=== PATIENT | female | born 1940 | race Caucasian/White ===

== ENCOUNTER 2018-01-19 08:42 | Inpatient (IN) | payer MEDICARE, OTHER, SELFPAY ==
[2018-01-01 10:01] VITALS: BP 146/75; PULSE 85; RESP 16; TEMP 36.1; O2SAT 94; BMI 44.6
--- NOTE | 2018-01-01 10:57 | HP.PCM_ITS ---
History and Physical DATE OF SERVICE: 01/19/2018 SCHEDULED PROCEDURE: Right total knee arthroplasty HISTORY OF PRESENT ILLNESS: This is a 77-year-old female who is been having ongoing pain in bilateral knees for several years. Pain can reach as high as a 7-8 out of 10. She has increased pain going up and down stairs, walking any amount of distance. Patient states her pain is intermittent, dull, aching, and sharp. Patient does complain of start up pain. Patient's knee pain is primarily over the medial joint line on the left and right knee. Patient states difficult time accomplishing activities of daily living including housework and shopping. Patient has tried ice heat elevation with minimal to no relief. Patient did undergo previous corticosteroid injections in the bilateral knees with only temporary relief. Patient did recently have her knees give out after pool therapy she complains of difficult time now with going up and down stairs and feeling weaker. Patient has been ambulating with a cane and walker. Patient states the right knee hurts worse than the left knee. Patient feels her overall function is decreasing due to the knee pain. She denies previous surgery on bilateral knees. After failing conservative measures and discussing all treatment options with Dr. Deleon, the patient would like to proceed with a right total knee arthroplasty. Patient has obtained surgical clearance from his primary care physician Dr. Morgan. Patient currently denies any chest pain , shortness of breath, fevers chills, or recent infections. REVIEW OF SYSTEMS: ROS: Const: Denies anorexia, change in appetite, fever, hard of hearing, vision problems and weight change. CV: Denies chest pain, heart murmur, irregular heartbeat and peripheral vascular disease. Resp: Denies asthma, cough, pneumonia, sleep apnea, SOB, tuberculosis and wheezing. GI: Denies constipation, diarrhea, difficulty swallowing, heartburn, nausea, bloody stools and vomiting. : Genital:. (F Genital Sx) Urinary: denies incontinence. Musculo: Reports leg swelling and limp, but denies trouble walking and weakness. Skin: Reports history of shingles, but denies Raynaud's and tattoo. Neuro: Denies ambulatory dysfunction, dizziness, numbness/tingling and tremor. Psych: Denies anxiety, depression, insomnia, mental illness and stress. Devin/Lymph: Denies anemia, bleeding/bruising tendency and past transfusion. Reviewed, no changes. PAST MEDICAL HISTORY: Advance Care Plan: Other Directive, LIVING WILL Effective Date: 02/10/2017 PMH: Medical Problems: Arthritis, High Blood Pressure Accidents: None Surgical Hx: Tonsillectomy - (1950) [facility] Hip Replacement RT - (1992) [facility] LT THR - (07/29/2010) [email or web address] RT THR Revision - (03/03/2017) [email or web address] Anesthesia Complications: Nausea, Vomiting Assistive Devices: Glasses Reviewed, no changes. SOCIAL HISTORY: SH: Marital: .Occupation: Retired.Work Status: Retired.Hand Dominance: Right- handed, Ambidextrous. Personal Habits: Smoking: Patient has never smoked.Cigarette Use: Never.Alcohol : Occasionally.Drug Use: Denies Use.Enjoy Exercising: Exercises 1-3 X/Week. Reviewed, no changes. VITALS: Ht: 62 Wt: 243lb Wt k.225 BMI: 44.4 BP: 130/78 Pulse: 80 Resp: 16 T: 97.4 T: 36.3C ALLERGIES: Penicillin - Rash And Swelling Eggs - Hives Sick Strawberries - Hives Sulfa - Swollen Face And Tongue Bandaids - Rash Vicodin Darvocet - Itching Aspercreme MEDICATIONS: Acetaminophen Extra Strength 500 mg 2 tablets by mouth every 8 hours, Atorvastatin Calcium 20 mg 1 po qd, Vitamin D3 1000 Unit 1x daily, Tramadol HCL 50 mg 1-2 by mouth every 6 hours as needed pain, Amlodipine Besylate 5 mg 1 by mouth every day, Metoprolol Succinate ER 25 mg 1 by mouth every day, Valsartan 12.5 mg 1po qday PRE-OP EXAM: General appearance:NORMAL Other: Eyes: Conjunctivae and lids: NORMAL Pupils: ERR Ears, Nose, Mouth, and Throat: NORMAL Other: Inspection of lips, teeth and gums: NORMAL Other: Neck: Examination of neck: no masses noted. Respiratory: Assessment of respiratory effort: NORMAL Other: Ausculation of lungs: clear to ausculation no wheeses, ronchi or rales. Cardiovascular: Ausculation of heart: regular rate and rhythem, positive systolic mummur, no gallops or rubs. Exam of carotid arteries: NORMAL Other: Gastrointestinal: Exam of abdomen: soft, nontender, nondistended bowel sounds present. Lymphatic: Palpation of nodes in neck: NORMAL Other: Palpation of nodes in Axillae: NORMAL Other: Neurological: see below Psychiatric: Orientation to time, place and person: NORMAL Other: Mood and affect: NORMAL Other: PHYSICAL EXAMINATION: Patient walks with an antalgic gait. Patient has tenderness to palpation over the right knee medial lateral joint line. Right knee is cool to touch without erythema. Patient does have varus alignment bilaterally. It is partially correctable on the right non-correctable on the left. Range of motion on the right is +3? to 115? flexion. Left knee +3? of extension to 110? of flexion. Sensations intact light touch. IMAGING STUDIES: 1. X-rays were obtained at [facility] on January 01, 2018 of bilateral knees including weightbearing AP/tunnel, bilateral sunrise and bilateral lateral view reveals bilateral severe osteoarthritis with severe joint space narrowing, subchondral sclerosis, osteophyte formation, and varus deformity on the left. There is valgus deformity on the right. No findings for fracture. IMPRESSION: 1. Severe right knee osteoarthritis with valgus deformity 2. Severe left knee osteoarthritis with varus deformity 3. Hypertension PLAN: Dr. Deleon did discuss and review with the patient all treatment options including surgical versus nonsurgical. Patient wishes to proceed with above- stated procedure. Potential risks, benefits, and complications of this procedure were discussed in detail including but not limited to , infection , nerve and blood vessel damage, persistent pain, numbness, tingling, paresthesias, blood clot, pulmonary embolism, and requirement for further surgery. The patient expressed full understanding has no further questions for the doctor. Patient does agree to proceed with the above-stated procedure and has signed the surgery consent form. Patient has obtained surgical clearance from primary care physician. ___ I have re-examined the patient. There are no clinical changes since date of exam. ___ See progress notes for changes. ___ Dictated on admission Date: Time: Signature:
[2018-01-01 11:59] LABS: Anion Gap 9 (5-15); BUN 34 mg/dL (7-18); BUN/Creat Ratio 29.8 RATIO (10-20); Calcium,Total 9.3 mg/dL (8.5-10.1); Chloride 101 mmol/L (98-107); Creatinine, Serum 1.14 mg/dL (0.55-1.02); EST Glomerular Filtration Rate 49 mL/min (>60); Est Glom Filt Rate - Afr Amer 59 mL/min (>60); Estimated Creatinine Clearance 30.69 ml/min; Glucose 106 mg/dL (74-106); Potassium 3.9 mmol/L (3.5-5.1); Sodium Level 137 mmol/L (136-145)
[2018-01-01 14:52] LABS: Absolute Lymphocyte Count 1.47 X10^3/ul (0.83-4.51); Absolute Neutrophil Count 5.6 X10^3/uL (2.0-7.7); Basophil# 0.06 X10^3/uL; Basophil% 0.8 % (0-1); Eosinophil# 0.12 X10^3/uL; Eosinophils% 1.6 % (0-5); Hematocrit 40.2 % (37-47); Hemoglobin 13.7 g/dl (12.0-15.0); Lymphocyte # 1.47 X10^3/ul (4.0); Mean Corp Hgb Conc 34.1 g/gl (32-36); Mean Corpuscular Hgb 32.2 pg (27.0-32.0); Mean Corpuscular Volume 94.6 fL (81-99); Mean Platelet Vol. 9.8 fl (6.2-12.0); Monocyte# 0.47 X10^3/uL; Monocyte% 6.1 % (0-10); Neutrophil # 5.61 X10^3/uL (2.7-7.7); Neutrophil % 72.4 % (47-70); POSITIVE COUNT NO; POSITIVE DIFFERENTIAL NO; POSITIVE MORPHOLOGY NO; Platelet Count 288 K/mm3 (150-450); RBC Distribution Width CV 12.7 % (11.6-14.6); Red Blood Count 4.25 M/mm3 (4.2-5.4); White Blood Count 7.7 K/mm3 (4.4-11.0)
--- NOTE | 2018-01-14 15:30 | CASEMGMT ---
SISI EVANS called and spoke with patient regarding discharge needs after upcoming surgery. Patient states that she has a walker, cane, shower chair, and toilet riser and denies need for further DME. Patient states that she lives in a house and bed and bath are on the first floor. Patient states she has some stairs to enter home and has railing x2. Patient states that she is setup with [facility] for outpatient therapy and that her will be providing transportation. SISI EVANS will follow up with patient after surgery and will assist with discharge needs.
[2018-01-19] VITALS (18 sets, daily range): BP systolic 75–139; BP diastolic 31–82; PULSE 58–92; RESP 16–64; TEMP 36.1–36.9; O2SAT 92–99; BMI 44.4
[2018-01-19] MEDS: oxyCODONE HCl Cr 10 MG Tablet PO (09:19)
[2018-01-19] MEDS: Acetaminophen 500 MG Tablet 1000 MG PO ×2 (09:19→20:53)
[2018-01-19] MEDS: Clindamycin 600 MG/50 ML BAG 100 MG IV ×2 (11:37→17:47)
[2018-01-19] MEDS: Lactated Ringers 1,000 ML 999 ML IV (13:00)
--- NOTE | 2018-01-19 13:00 | PCM.OPRPT ---
Report of Operation Date of Procedure: 01/19/18 Pre-Operative Diagnosis: Primary right knee osteoarthritis Post-Operative Diagnosis: Primary right knee osteoarthritis Surgery/Procedure Performed:: Right total knee replacement, posterior stabilized Description of Surgical Findings:: Stable knee with good patella tracking clinical specialist medical device: Jerry Mcintyre Type of Anesthesia:: Spinal Anesthesiologist: Bong Krause Special Medications: 600 mg clindamycin, 1 g TXA at incision, 1 g TXA closure, 10 mg Decadron, joint cocktail (5 mg Duramorph, 30 mL of 0.5% Ropivicaine, 1000 units of epinephrine, 30 mg of Toradol) Specimen's removed: Bony cuts Estimated Blood Loss (mL): 50 Fluids Replaced: 1800 mL crystalloid Description of Procedure: Implants used: 1. Rachel size 4 triathlon posterior stabilized distal femoral component 2. Rachel size 4 universal tibial baseplate 3. Rachel X3 13 mm TS polyethylene 4. [place] X3 32 mm asymmetric patella Brief history operative indications: 77-year-old f with history of right knee osteoarthritis with radiographic findings with loss of joint space, osteophyte formation and subchondral sclerosis. Failed conservative measures as mentioned in the H&P. Discussion of total knee arthroplasty as well as risk and benefits were discussed the patient including but not limited to blood loss, DVTs, PEs, neurovascular damage, general risk of anesthesia including loss of life, and stiffness or instability were discussed with patient. Patient demonstrated understanding and was able to sign informed consent. Procedure: On the date of procedure patient's right lower extremity was marked in the preoperative area. The patient was then taken back to the operating room where the patient was placed on the table in the supine position. All bony prominences were identified a well-padded. Anesthesia assumed control of the C-spine and airway and remained controlled throughout the remainder of the procedure. A tourniquet was placed on the right upper thigh and the leg was prepped in a sterile fashion. The surgeon then scrubbed at this time. Upon reentering the room the right lower extremity was draped in a standard orthopedic fashion. A timeout was then called and everyone agreed upon the side, the site, the procedure to be performed, patient's identity and antibiotics given. Esmarch bandage was used to exsanguinate the extremity and the tourniquet was placed up to 250 mmHg with the knee in flexion. A midline skin incision was made and sharp dissection was taken down through skin subcutaneous tissue and fat. The standard medial parapatellar incision was made and the patella was subluxed laterally. The standard deep MCL release was done and the fat pad was resected. Next our attention was directed to the femur. Navigation pins were placed, navigation was registered. The distal femoral cutting block was pinned into place and 10 mm of distal femur resection was completed. The distal femoral cut was verified with navigation. The knee was then placed in deep flexion in the standard [employer] sizing guide was used to place the femoral component in 3? external rotation based on the posterior condyles. A size 4 4-in-1 cutting block was selected and pinned into place. The anterior cut was then made and checked for notching. The subsequent anterior chamfer cuts, posterior condylar cuts and posterior chamfer cuts were made while ensuring the MCL and LCL were protected. Our attention was then turned to the tibia where the navigation pins were placed, navigation was registered. [employer] tibial cutting guide was used to make the appropriate tibial cut 90 degrees from the mechanical axis. Navigation was then used to verify the cut. A size 4 tibial base plate was selected. the knee was flexed to 90 degrees and the soft tissues and posterior osteophytes were removed from the joint. 40 cc of the periarticular injection was injected into the posterior medial corner of the joint. Knee was flexed up and the notch cut was made using the [employer] notch cutting guide did The appropriate trials were then placed on the femur and tibia. A trial polyethylene was trialed to ensure proper balancing and stability of the knee. Patella tracking, was then verified and corrected appropriately as needed. The appropriate tibial internal rotation was then marked with a bovie. Our attention was then directed to the patella. The patella was everted and a flat resection was made. The lug holes were drilled and the patella trial was placed. Patellar tracking was checked and deemed appropriate. Once we were happy lug holes were drilled for the femur and trial components were removed. the tibia was subluxed and pinned into place and the keel was punched and the canal was reamed. Final components were verified and opened, and cement was mixed in a vacuum. [place] Simplex cement was used. The wound was copiously irrigated with normal saline. When the cement was ready the components were cemented into place starting with the tibia, femur and finally the patella. The trial poly component was placed and the knee was placed in full extension. All excess cement was removed in the process. Once the cement had cured the tracking, alignment and balance were verified and a size 13 mm polyethylene component was placed. Once the final components were placed the wound was copiously irrigated with normal saline solution and the periarticular injection was given. The wound was closed in a layer caraballo fashion using #1 vicryl interrupted sutures for the arthrotomy, 2-0 interrupted Vicryl suture for the subcuticular layer and gaudencio for final skin closure. A sterile compressive dressing was then placed. The patient was then awakened from anesthesia, transferred to the [place] and transferred to the PACU for recovery. Post op plan DVT ppx: ASA 325mg, thigh high compression stockings Follow up: in office in 2 weeks for wound check PT: to start POD #0 at hospital, outpatient PT should be arranged. My physician operator/assistant foreman was a vital part of this case. He was important in appropriate retraction during the case, and protection of soft tissues during bony cuts. His intimate knowledge of the case and my steps aided in safe and expedient completion of the procedure as well as appropriate position of the leg during the case. He was also vital in assisting with closure under my direct supervision. Grafts/Implants Used: Tracker triathlon posterior stabilized total knee - Complications None - Admit VTE Documentation VTE Present on Admission: No VTE Mechan Device Prophylaxis: SCD's, Thigh High DEDE Hose VTE Pharm Prophylaxis ordered?: Yes
--- NOTE | 2018-01-19 13:04 | OP.PCM_ITS ---
Report of Operation Date of Procedure: 01/19/18 Pre-Operative Diagnosis: Primary right knee osteoarthritis Post-Operative Diagnosis: Primary right knee osteoarthritis Surgery/Procedure Performed:: Right total knee replacement, posterior stabilized Description of Surgical Findings:: Stable knee with good patella tracking cemetery vault installer: Jerry Mcintyre Type of Anesthesia:: Spinal Anesthesiologist: Bong Krause Special Medications: 600 mg clindamycin, 1 g TXA at incision, 1 g TXA closure, 10 mg Decadron, joint cocktail (5 mg Duramorph, 30 mL of 0.5% Ropivicaine, 1000 units of epinephrine, 30 mg of Toradol) Specimen's removed: Bony cuts Estimated Blood Loss (mL): 50 Fluids Replaced: 1800 mL crystalloid Description of Procedure: Implants used: 1. Rachel size 4 triathlon posterior stabilized distal femoral component 2. Rachel size 4 universal tibial baseplate 3. Rachel X3 13 mm TS polyethylene 4. [place] X3 32 mm asymmetric patella Brief history operative indications: 77-year-old f with history of right knee osteoarthritis with radiographic findings with loss of joint space, osteophyte formation and subchondral sclerosis. Failed conservative measures as mentioned in the H&P. Discussion of total knee arthroplasty as well as risk and benefits were discussed the patient including but not limited to blood loss, DVTs, PEs, neurovascular damage , general risk of anesthesia including loss of life, and stiffness or instability were discussed with patient. Patient demonstrated understanding and was able to sign informed consent. Procedure: On the date of procedure patient's right lower extremity was marked in the preoperative area. The patient was then taken back to the operating room where the patient was placed on the table in the supine position. All bony prominences were identified a well-padded. Anesthesia assumed control of the C- spine and airway and remained controlled throughout the remainder of the procedure. A tourniquet was placed on the right upper thigh and the leg was prepped in a sterile fashion. The surgeon then scrubbed at this time. Upon reentering the room the right lower extremity was draped in a standard orthopedic fashion. A timeout was then called and everyone agreed upon the side , the site, the procedure to be performed, patient's identity and antibiotics given. Esmarch bandage was used to exsanguinate the extremity and the tourniquet was placed up to 250 mmHg with the knee in flexion. A midline skin incision was made and sharp dissection was taken down through skin subcutaneous tissue and fat. The standard medial parapatellar incision was made and the patella was subluxed laterally. The standard deep MCL release was done and the fat pad was resected. Next our attention was directed to the femur. Navigation pins were placed, navigation was registered. The distal femoral cutting block was pinned into place and 10 mm of distal femur resection was completed. The distal femoral cut was verified with navigation. The knee was then placed in deep flexion in the standard [employer] sizing guide was used to place the femoral component in 3? external rotation based on the posterior condyles. A size 4 4-in-1 cutting block was selected and pinned into place. The anterior cut was then made and checked for notching. The subsequent anterior chamfer cuts, posterior condylar cuts and posterior chamfer cuts were made while ensuring the MCL and LCL were protected. Our attention was then turned to the tibia where the navigation pins were placed , navigation was registered. [employer] tibial cutting guide was used to make the appropriate tibial cut 90 degrees from the mechanical axis. Navigation was then used to verify the cut. A size 4 tibial base plate was selected. the knee was flexed to 90 degrees and the soft tissues and posterior osteophytes were removed from the joint. 40 cc of the periarticular injection was injected into the posterior medial corner of the joint. Knee was flexed up and the notch cut was made using the [employer] notch cutting guide did The appropriate trials were then placed on the femur and tibia. A trial polyethylene was trialed to ensure proper balancing and stability of the knee. Patella tracking, was then verified and corrected appropriately as needed. The appropriate tibial internal rotation was then marked with a bovie. Our attention was then directed to the patella. The patella was everted and a flat resection was made. The lug holes were drilled and the patella trial was placed. Patellar tracking was checked and deemed appropriate. Once we were happy lug holes were drilled for the femur and trial components were removed. the tibia was subluxed and pinned into place and the keel was punched and the canal was reamed. Final components were verified and opened, and cement was mixed in a vacuum. Rachel Simplex cement was used. The wound was copiously irrigated with normal saline. When the cement was ready the components were cemented into place starting with the tibia, femur and finally the patella. The trial poly component was placed and the knee was placed in full extension. All excess cement was removed in the process. Once the cement had cured the tracking, alignment and balance were verified and a size 13 mm polyethylene component was placed. Once the final components were placed the wound was copiously irrigated with normal saline solution and the periarticular injection was given. The wound was closed in a layer caraballo fashion using #1 vicryl interrupted sutures for the arthrotomy, 2-0 interrupted Vicryl suture for the subcuticular layer and gaudencio for final skin closure. A sterile compressive dressing was then placed. The patient was then awakened from anesthesia, transferred to the [place] and transferred to the PACU for recovery. Post op plan DVT ppx: ASA 325mg, thigh high compression stockings Follow up: in office in 2 weeks for wound check PT: to start POD #0 at hospital, outpatient PT should be arranged. My physician respiratory care assistant was a vital part of this case. He was important in appropriate retraction during the case, and protection of soft tissues during bony cuts. His intimate knowledge of the case and my steps aided in safe and expedient completion of the procedure as well as appropriate position of the leg during the case. He was also vital in assisting with closure under my direct supervision. Grafts/Implants Used: Tracker triathlon posterior stabilized total knee - Complications None - Admit VTE Documentation VTE Present on Admission: No VTE Mechan Device Prophylaxis: SCD's, Thigh High DEDE Hose VTE Pharm Prophylaxis ordered?: Yes
--- NOTE | 2018-01-19 13:30 | RAD_ITS ---
STUDY: X-RAY - RIGHT KNEE REASON FOR EXAM: Female, 77 years old. Total knee replacement. TECHNIQUE: 2 view(s) of the knee. COMPARISON: None. FINDINGS: Normal visualized distal femur. Normal visualized proximal tibia and fibula. Normal proximal tibiofibular articulation. The patient is status post total knee replacement of the constrained type. Postoperative soft tissue changes. RAD/Knee 1 or 2 Views IMPRESSION: Total knee replacement of the constrained type. Good alignment. Electronically Signed: Jensen Godfrey MD at 13:51 EDT Tel [phone], Service support ,
[2018-01-19] MEDS: Ketorolac 15 MG/ML Vial IV (18:01)
[2018-01-19] MEDS: Aspirin 325 MG Tablet PO (20:53)
[2018-01-19] MEDS: Senna/Docusate Sodium 1 Tablet 2 TABLET PO (20:53)
[2018-01-19] MEDS: oxyCODONE 5 MG Tablet PO (20:53)
[2018-01-19] MEDS: Lactated Ringers 1,000 ML 125 ML IV (23:36)
[2018-01-20] VITALS (8 sets, daily range): BP systolic 102–125; BP diastolic 49–94; PULSE 66–82; RESP 16–18; TEMP 36.3–37.7; O2SAT 93–98
[2018-01-20] MEDS: Clindamycin 600 MG/50 ML BAG 100 MG IV ×2 (00:29→04:54)
[2018-01-20] MEDS: oxyCODONE 5 MG Tablet PO ×4 (00:47→22:34)
[2018-01-20] MEDS: Acetaminophen 500 MG Tablet 1000 MG PO ×3 (04:53→22:34)
[2018-01-20] MEDS: Ketorolac 15 MG/ML Vial IV (04:54)
[2018-01-20] MEDS: 0.9% NaCl Peripheral Flush Adult/Peds IV (04:59)
[2018-01-20] MEDS: Ondansetron 4 MG/2 ML Vial IV ×2 (04:59→16:30)
[2018-01-20 06:06] LABS: Hematocrit 31.7 % (37-47); Hemoglobin 10.8 g/dl (12.0-15.0); Mean Corp Hgb Conc 34.1 g/gl (32-36); Mean Corpuscular Hgb 32.9 pg (27.0-32.0); Mean Corpuscular Volume 96.6 fL (81-99); Mean Platelet Vol. 9.7 fl (6.2-12.0); Platelet Count 217 K/mm3 (150-450); RBC Distribution Width CV 12.1 % (11.6-14.6); Red Blood Count 3.28 M/mm3 (4.2-5.4); White Blood Count 6.6 K/mm3 (4.4-11.0)
[2018-01-20 06:11] LABS: Scan Indicated on CBC? Y/N NO
[2018-01-20 06:19] LABS: Anion Gap 8 (5-15); BUN 27 mg/dL (7-18); BUN/Creat Ratio 29.4 RATIO (10-20); Calcium,Total 8.3 mg/dL (8.5-10.1); Chloride 103 mmol/L (98-107); Creatinine, Serum 0.92 mg/dL (0.55-1.02); EST Glomerular Filtration Rate 63 mL/min (>60); Est Glom Filt Rate - Afr Amer 76 mL/min (>60); Estimated Creatinine Clearance 39.86 ml/min; Glucose 96 mg/dL (74-106); Potassium 3.7 mmol/L (3.5-5.1); Sodium Level 137 mmol/L (136-145)
--- NOTE | 2018-01-20 07:02 | PN.ORTHO_ITS ---
Subjective: The patient was sitting in bed upon examination. Patient denies any chest pain , shortness of breath, dizziness, lightheadedness, or calf pain. Patient does report vomiting this morning. Patient does feel better and does have medications on board. Pain is controlled on medications. No adverse overnight events. Patient does report pain in the right knee. Objective: Vital signs stable and afebrile. Patient is able to plantarflex and dorsiflex actively. Sensation is intact to light touch to saphenous, sural, superficial and deep peroneal, and tibial distribution. Dressing is clean dry and intact. Negative Homans bilaterally, negative signs and symptoms of DVT. - Physical Exam General: Alert, Oriented x3, Cooperative, No apparent distress Vital Signs Temp Pulse Resp BP Pulse Ox 99.2 F H 82 18 108/49 L 94 01/20/18 05:37 01/20/18 05:37 01/20/18 05:37 01/20/18 05:37 01/20/18 05:37 Oxygen Flow Rate (L/min) 2 Oxygen Delivery Method Room Air Weight: 110.1 kg Body Mass Index (BMI) 44.4 Intake and Output for Last 24 Hours 01/18/18 01/19/18 01/20/18 23:59 23:59 23:59 Intake Total 4542 / 4542 Balance 4542 / 4542 Laboratory Tests Past 24 Hrs 01/20/18 01/20/18 05:34 05:34 WBC 6.6 RBC 3.28 L Hgb 10.8 L Hct 31.7 L MCV 96.6 MCH 32.9 H MCHC 34.1 RDW 12.1 RDW Differential 41.0 Plt Count 217 MPV 9.7 Sodium 137 Potassium 3.7 Chloride 103 Carbon Dioxide 26.0 Anion Gap 8 BUN 27 H Creatinine 0.92 Estim Creat Clear Calc 39.86 Est GFR (MDRD) Af Amer 76 Est GFR (MDRD) Non-Af 63 BUN/Creatinine Ratio 29.4 H Glucose 96 Calcium 8.3 L Assessment/Plan 1. S/P right total knee arthroplasty POD #1 2. Continue Pain Medications: Tylenol and OxyIR 3. DVT Prophylaxis: Aspirin 325 mg twice daily 4. PT/OT: Weightbearing as tolerated 5. H & H: 10.8/31.7, asymptomatic 6. Encouraged Incentive Spirometry 7. Disposition: Plan will be for possible discharge home tomorrow if pain is controlled and patient tolerates physical therapy.
[2018-01-20] MEDS: Aspirin 325 MG Tablet PO ×2 (08:31→16:30)
[2018-01-20] MEDS: traZODone 50 MG Tablet PO (08:33)
[2018-01-20] MEDS: Multivitamins,Therapeutic Tablet 1 TABLET PO (08:33)
[2018-01-20] MEDS: Lactated Ringers 1,000 ML 125 ML IV ×2 (09:11→16:31)
--- NOTE | 2018-01-20 09:30 | CASEMGMT ---
SISI EVANS Face to Face with patient for initial transition planning/care coordination assessment. RN NATHAN introduced self and role at [facility]. Patient sitting in chair, alert and oriented. Patient willing to participate in assessment and is able to answer all questions appropriately. Care providers, pharmacy, and demographics verified. See link attached. Patient wishes to discharge home and is setup with [facility] for outpatient therapy, to provide transportation. Patient states she has no further needs or concerns at this time. CM to follow for discharge planning needs that may arise. Disposition Plan: Patient to discharge home with outpatient therapy, family support, and follow-up plans in place.
[2018-01-20] MEDS: HYDROCHLOROTHIAZIDE 12.5 MG CAPSULE PO (10:22)
[2018-01-20] MEDS: Famotidine 20 MG Tablet PO (10:27)
[2018-01-20] MEDS: amLODIPine 5 MG Tablet PO (10:27)
[2018-01-20] MEDS: Atorvastatin Calcium 20 MG Tablet PO (10:27)
[2018-01-20] MEDS: Metoprolol(XL)Succ 25 MG Tablet PO (10:28)
[2018-01-20] MEDS: Senna/Docusate Sodium 1 Tablet 2 TABLET PO ×2 (10:28→22:34)
[2018-01-21 06:00] VITALS: BP 109/51; PULSE 71; RESP 18; TEMP 36.7; O2SAT 96
[2018-01-21] MEDS: Acetaminophen 500 MG Tablet 1000 MG PO ×2 (06:30→13:30)
[2018-01-21 06:39] LABS: Hematocrit 30.8 % (37-47); Hemoglobin 10.4 g/dl (12.0-15.0); Mean Corp Hgb Conc 33.8 g/gl (32-36); Mean Corpuscular Hgb 32.9 pg (27.0-32.0); Mean Corpuscular Volume 97.5 fL (81-99); Mean Platelet Vol. 10.2 fl (6.2-12.0); Platelet Count 205 K/mm3 (150-450); RBC Distribution Width SD 40.9 fl (35.1-43.9); Red Blood Count 3.16 M/mm3 (4.2-5.4)
[2018-01-21 06:42] LABS: Scan Indicated on CBC? Y/N NO
[2018-01-21 06:51] LABS: Anion Gap 8 (5-15); BUN 19 mg/dL (7-18); BUN/Creat Ratio 20.4 RATIO (10-20); Calcium,Total 8.5 mg/dL (8.5-10.1); Chloride 105 mmol/L (98-107); Creatinine, Serum 0.93 mg/dL (0.55-1.02); EST Glomerular Filtration Rate 62 mL/min (>60); Est Glom Filt Rate - Afr Amer 75 mL/min (>60); Estimated Creatinine Clearance 39.43 ml/min; Glucose 97 mg/dL (74-106); Potassium 3.7 mmol/L (3.5-5.1); Sodium Level 139 mmol/L (136-145)
[2018-01-21 07:55] VITALS: BP 119/60; PULSE 65; RESP 16; TEMP 37.6; O2SAT 93
[2018-01-21] MEDS: Multivitamins,Therapeutic Tablet 1 TABLET PO (08:06)
[2018-01-21] MEDS: Aspirin 325 MG Tablet PO (08:06)
[2018-01-21] MEDS: traZODone 50 MG Tablet PO (08:07)
[2018-01-21] MEDS: Lactated Ringers 1,000 ML 125 ML IV (09:06)
[2018-01-21] MEDS: HYDROCHLOROTHIAZIDE 12.5 MG CAPSULE PO (10:16)
[2018-01-21 10:17] VITALS: PULSE 68
[2018-01-21] MEDS: Senna/Docusate Sodium 1 Tablet 2 TABLET PO (10:17)
[2018-01-21] MEDS: Metoprolol(XL)Succ 25 MG Tablet PO (10:17)
[2018-01-21] MEDS: amLODIPine 5 MG Tablet PO (10:17)
[2018-01-21] MEDS: Atorvastatin Calcium 20 MG Tablet PO (10:17)
[2018-01-21] MEDS: Famotidine 20 MG Tablet PO (10:17)
--- NOTE | 2018-01-21 10:29 | NURSING ---
Request restock of Oxycodone in accudose from pharmacy.
[2018-01-21 11:44] VITALS: O2SAT 90
--- NOTE | 2018-01-21 12:41 | PCM.PN.ORT ---
Subjective: The patient was sitting in bedside chair upon examination. Patient denies any chest pain, shortness of breath, dizziness, lightheadedness, nausea or vomiting, or calf pain. Pain is controlled on medications. No adverse overnight events. Overall patient has been doing well. She has been tolerating physical therapy and pain is controlled. Plan is for discharge home today. Objective: Vital signs stable and afebrile. Patient is able to plantarflex and dorsiflex actively. Sensation is intact to light touch to saphenous, sural, superficial and deep peroneal, and tibial distribution. Dressing is clean dry and intact. Minimal drainage to distal dressing Negative Homans bilaterally, negative signs and symptoms of DVT. - Physical Exam General: Alert, Oriented x3, Cooperative, No apparent distress Vital Signs Temp Pulse Resp BP Pulse Ox 99.6 F H 68 16 119/60 90 01/21/18 07:55 01/21/18 10:17 01/21/18 07:55 01/21/18 07:55 01/21/18 11:44 Oxygen Flow Rate (L/min) 2 Oxygen Delivery Method Room Air Weight: 110.1 kg Body Mass Index (BMI) 44.4 Intake and Output for Last 24 Hours 01/19/18 01/20/18 01/21/18 23:59 23:59 23:59 Intake Total 4542 / 4542 2390 / 2390 2083 / 2083 Output Total 500 / 500 Balance 4542 / 4542 1890 / 1890 2083 / 2083 Laboratory Tests Past 24 Hrs 01/21/18 01/21/18 05:56 05:56 WBC 6.0 RBC 3.16 L Hgb 10.4 L Hct 30.8 L MCV 97.5 MCH 32.9 H MCHC 33.8 RDW 12.0 RDW Differential 40.9 Plt Count 205 MPV 10.2 Sodium 139 Potassium 3.7 Chloride 105 Carbon Dioxide 26.0 Anion Gap 8 BUN 19 H Creatinine 0.93 Estim Creat Clear Calc 39.43 Est GFR (MDRD) Af Amer 75 Est GFR (MDRD) Non-Af 62 BUN/Creatinine Ratio 20.4 H Glucose 97 Calcium 8.5 Assessment/Plan 1. S/P right total knee arthroplasty POD #2 2. Continue Pain Medications: Tylenol and OxyIR 3. DVT Prophylaxis: Aspirin 325 mg twice daily 4. PT/OT: Weightbearing as tolerated 5. H & H: 10.4/30.8, asymptomatic 6. Encouraged Incentive Spirometry 7. Disposition: Orthopedically stable, plan is for discharge home today. Patient is tolerating physical therapy and pain is controlled. Medications will be E scribed to [facility]. Patient will follow-up per postop instructions.
--- NOTE | 2018-01-21 12:45 | PN.ORTHO_ITS ---
Subjective: The patient was sitting in bedside chair upon examination. Patient denies any chest pain, shortness of breath, dizziness, lightheadedness, nausea or vomiting , or calf pain. Pain is controlled on medications. No adverse overnight events. Overall patient has been doing well. She has been tolerating physical therapy and pain is controlled. Plan is for discharge home today. Objective: Vital signs stable and afebrile. Patient is able to plantarflex and dorsiflex actively. Sensation is intact to light touch to saphenous, sural, superficial and deep peroneal, and tibial distribution. Dressing is clean dry and intact. Minimal drainage to distal dressing Negative Homans bilaterally, negative signs and symptoms of DVT. - Physical Exam General: Alert, Oriented x3, Cooperative, No apparent distress Vital Signs Temp Pulse Resp BP Pulse Ox 99.6 F H 68 16 119/60 90 01/21/18 07:55 01/21/18 10:17 01/21/18 07:55 01/21/18 07:55 01/21/18 11:44 Oxygen Flow Rate (L/min) 2 Oxygen Delivery Method Room Air Weight: 110.1 kg Body Mass Index (BMI) 44.4 Intake and Output for Last 24 Hours 01/19/18 01/20/18 01/21/18 23:59 23:59 23:59 Intake Total 4542 / 4542 2390 / 2390 2083 / 2083 Output Total 500 / 500 Balance 4542 / 4542 1890 / 1890 2083 / 2083 Laboratory Tests Past 24 Hrs 01/21/18 01/21/18 05:56 05:56 WBC 6.0 RBC 3.16 L Hgb 10.4 L Hct 30.8 L MCV 97.5 MCH 32.9 H MCHC 33.8 RDW 12.0 RDW Differential 40.9 Plt Count 205 MPV 10.2 Sodium 139 Potassium 3.7 Chloride 105 Carbon Dioxide 26.0 Anion Gap 8 BUN 19 H Creatinine 0.93 Estim Creat Clear Calc 39.43 Est GFR (MDRD) Af Amer 75 Est GFR (MDRD) Non-Af 62 BUN/Creatinine Ratio 20.4 H Glucose 97 Calcium 8.5 Assessment/Plan 1. S/P right total knee arthroplasty POD #2 2. Continue Pain Medications: Tylenol and OxyIR 3. DVT Prophylaxis: Aspirin 325 mg twice daily 4. PT/OT: Weightbearing as tolerated 5. H & H: 10.4/30.8, asymptomatic 6. Encouraged Incentive Spirometry 7. Disposition: Orthopedically stable, plan is for discharge home today. Patient is tolerating physical therapy and pain is controlled. Medications will be E scribed to [facility] Patient will follow-up per postop instructions.
[2018-01-21] MEDS: oxyCODONE 5 MG Tablet PO (12:46)
--- NOTE | 2018-01-21 12:50 | PCM.DC.TKR ---
Discharge Diet: No Restrictions Discharge Activity: May Not Drive May shower in (days): 1 - Dressing away from water Ice area for (Minutes): 20 - every hour while awake. Weight Bearing Status: Weight bearing as tolerated Elevate: Operative Extremity Additional Activity Instructions:: Wear elastic stockings for 2 weeks after your surgery. Call your doctor if your incision/area has: Continuous Slow Oozing, Sudden Increased Bleeding, Increased Pain/ Swelling, Increased Redness, Foul Smelling Discharge Call your doctor if you observe: Fever of 101 or Higher, Coldness, Increased Pain, Numbness or Tingling, Change in Color, Calf discomfort, Uncontrolled pain Remove Dressing in (days):: 3 - Okay to remove on January 24, 2018 Additional Instructions: Follow [facility] postop instructions Allergies/Adverse Reactions: Allergies camphor [From Vicks Vaporub] Allergy (Verified 01/01/18 09:39) Rash diclofenac [From Arthrotec] Allergy (Verified 01/01/18 09:39) Rash egg Allergy (Verified 01/01/18 09:39) Food Allergy eucalyptus [From Vicks Vaporub] Allergy (Verified 01/01/18 09:39) Rash menthol [From Vicks Vaporub] Allergy (Verified 01/01/18 09:39) Rash misoprostol [From Arthrotec] Allergy (Verified 01/01/18 09:39) Rash Penicillins [PCN] Allergy (Verified 01/01/18 09:39) Rash petrolatum,white [From Vicks Vaporub] Allergy (Verified 01/01/18 09:39) Rash propoxyphene [From Darvocet-N] Allergy (Verified 01/01/18 09:39) Other NIGHTMARES strawberry Allergy (Verified 01/01/18 09:39) Food Allergy trolamine salicylate [From Aspercreme] Allergy (Verified 01/01/18 09:39) Rash turpentine oil [From Vicks Vaporub] Allergy (Verified 01/01/18 09:39) Rash hydrocodone [From Vicodin] Adverse Reaction (Verified 01/01/18 09:39) Other NIGHTMARES BAND AID Allergy (Uncoded 01/01/18 09:39) Rash TAPE Allergy (Uncoded 01/01/18 09:39) Rash Medications to take at Discharge Amlodipine [Norvasc] 5 mg PO DAILY 02/23/17 Cholecalciferol (Vitamin D3) [Vitamin D3] 1,000 unit PO DAILY 02/23/17 Metoprolol Succinate 25 mg PO DAILY 02/23/17 Multivitamin [Multiple Vitamins] 1 each PO DAILY 02/23/17 Valsartan/Hydrochlorothiazide [Valsartan-Hctz 320-12.5 mg Tab] 1 each PO DAILY 02/23/17 Atorvastatin Calcium [Lipitor] 20 mg PO DAILY 01/01/18 Trazodone HCl [Desyrel] 50 mg PO BREAKFAST 01/01/18 Acetaminophen [Tylenol] 1,000 mg PO Q8 #90 tab 01/21/18 Aspirin 325 mg PO BIDCM #30 tab 01/21/18 Famotidine [Pepcid] 20 mg PO DAILY #30 tab 01/21/18 Oxycodone [Oxyir] 5 - 10 mg PO Q4H PRN PRN 7 Days #80 tablet 01/21/18 Senna/Docusate Sodium [Senokot-S] 2 tab PO BID #20 tab 01/21/18 The following prescriptions were given: Oxycodone [Oxyir] 5 - 10 mg PO Q4H PRN PRN 7 Days #80 tablet PRN Reason: Mod-Severe Pain (4-10/10) Acetaminophen [Tylenol] 1,000 mg PO Q8 #90 tab Famotidine [Pepcid] 20 mg PO DAILY #30 tab Aspirin 325 mg PO BIDCM #30 tab Senna/Docusate Sodium [Senokot-S] 2 tab PO BID #20 tab Primary Care Physician: Michael Morgan MD [Primary Care Provider] - Please Follow Up With: [facility] When: 01/25/18 @ 11:00 am with gera Please Follow Up With: Jerry Mcintyre PA-C When: 02/01/18 @ 11:00 am
[2018-01-21 12:52] VITALS: BP 98/44; PULSE 83; RESP 16; TEMP 37; O2SAT 96
== END 2018-01-21 14:32 | disposition home or self-care (01) | DRG 470 ==
LOC: ACINP 08:44 → MS3 11:47
PROVIDERS: Admitting Provider Specialist; Family Provider Family Medicine; PCP Family Medicine; Visit Provider Specialist
PROC: 0SRC0J9 Replacement of Right Knee Joint with Synthetic Substitute, Cemented, Open Approach (ICD-10-PCS; CPT 27447; principal; 2018-01-19 10:30)
DX: M17.0 Bilateral primary osteoarthritis of knee (principal); I10 Essential (primary) hypertension; M21.061 Valgus deformity, not elsewhere classified, right knee; M21.162 Varus deformity, not elsewhere classified, left knee
CPT/HCPCS: 36415; 73560; 80048; 85025; 85027; 87077; 87081; 97110; 97116; 97162; 97166; 97530; 97535; 99251; J7120; A4216; G0463; J2405

== ENCOUNTER 2018-03-10 05:30 | Inpatient (IN) | payer MEDICARE, OTHER, SELFPAY ==
[2018-02-24 10:44] VITALS: BP 125/68; PULSE 68; RESP 17; TEMP 37.2; O2SAT 97; BMI 45.3
--- NOTE | 2018-02-25 15:04 | PCM.HP.BLA ---
History and Physical DATE OF SURGERY: 03/10/2018 SCHEDULED PROCEDURE: Left Total Knee Arthroplasty HISTORY OF PRESENT ILLNESS: This is a 77-year-old female who is been having ongoing pain in bilateral knees for several years. Patient recently underwent a right total knee arthroplasty on January 19, 2018. She is doing well postoperatively from this procedure. She continues to have ongoing pain in the left knee. Pain has been dull, aching, and sharp. Patient has difficult time with activities of daily living including housework as well as shopping. Patient has pain going up and down stairs. She does feel weaker on the left knee. Patient continues to have grinding and crepitus in the left knee. Patient has tried conservative measures consisting of ice, heat, elevation, and previous corticosteroid injections with no relief in symptoms. She has been through aqua therapy with no relief in symptoms. She has been on oral medications consisting of Tylenol and tramadol in the past with minimal relief. Patient has used a cane and walker due to the pain. After failing conservative measures and discussing all treatment options with Dr. Deleon, the patient would like to proceed with a left total knee arthroplasty. Patient has obtained previous surgical clearance from the primary care physician Dr. Morgan. Patient currently denies any chest pain, shortness of breath, fevers chills, or recent infections. Patient has medical history pertinent for hypertension. REVIEW OF SYSTEMS: ROS: Const: Denies anorexia, change in appetite, fever, hard of hearing, vision problems and weight change. CV: Denies chest pain, heart murmur, irregular heartbeat and peripheral vascular disease. Resp: Denies asthma, cough, pneumonia, sleep apnea, SOB, tuberculosis and wheezing. GI: Denies constipation, diarrhea, difficulty swallowing, heartburn, nausea, bloody stools and vomiting. : Genital:. (F Genital Sx) Urinary: denies incontinence. Musculo: Reports leg swelling and limp, but denies trouble walking and weakness. Skin: Reports history of shingles, but denies Raynaud's and tattoo. Neuro: Denies ambulatory dysfunction, dizziness, numbness/tingling and tremor. Psych: Denies anxiety, depression, insomnia, mental illness and stress. Devin/Lymph: Denies anemia, bleeding/bruising tendency and past transfusion. Reviewed, no changes. PAST MEDICAL HISTORY: Advance Care Plan: Other Directive, LIVING WILL Effective Date: 02/10/2017 PMH: Medical Problems: Arthritis, High Blood Pressure Accidents: None Surgical Hx: Tonsillectomy - (1950) [facility] Hip Replacement RT - (1992) [facility] LT THR - (07/29/2010) [email or web address] RT THR Revision - (03/03/2017) [email or web address] Knee Replacement RT - (01/19/2018) [email or web address] Anesthesia Complications: Nausea, Vomiting Assistive Devices: Glasses Reviewed, no changes. SOCIAL HISTORY: SH: Marital: .Occupation: Retired.Work Status: Retired.Hand Dominance: Right-handed, Ambidextrous. Personal Habits: Smoking: Patient has never smoked.Cigarette Use: Never.Alcohol: Occasionally.Drug Use: Denies Use.Enjoy Exercising: Exercises 1-3 X/Week. Reviewed, no changes. VITALS: Ht: 61.4 Wt: 242lb Wt k.771 BMI: 45.1 BP: 134/68 Pulse: 84 Resp: 16 T: 98 T: 36.7C ALLERGIES: Penicillin - Rash And Swelling Eggs - Hives Sick Strawberries - Hives Sulfa - Swollen Face And Tongue Bandaids - Rash Vicodin Darvocet - Itching Aspercreme MEDICATIONS: Bactroban 2 % apply to each notril as directed 5 days prior to surgery, Atorvastatin Calcium 20 mg 1 po qd, Vitamin D3 1000 Unit 1x daily, Amlodipine Besylate 5 mg 1 by mouth every day, Metoprolol Succinate ER 25 mg 1 by mouth every day, Valsartan 12.5 mg 1po qday, Oxycodone HCL 5 mg 1-2 tab by mouth every 4 hours PRE-OP EXAM: General appearance:NORMAL Other: Eyes: Conjunctivae and lids: NORMAL Pupils: ERR Ears, Nose, Mouth, and Throat: NORMAL Other: Inspection of lips, teeth and gums: NORMAL Other: Neck: Examination of neck: no masses noted. Respiratory: Assessment of respiratory effort: NORMAL Other: Auscultation of lungs: clear to auscultation no wheezes, rhonchi or rales. Cardiovascular: Auscultation of heart: regular rate and rhythm, no murmurs, gallops or rubs. Exam of carotid arteries: NORMAL Other: Gastrointestinal: Exam of abdomen: soft, nontender, nondistended bowel sounds present. PHYSICAL EXAMINATION: Left knee is cool to touch without erythema. She has tenderness to palpation over the medial joint line. Range of motion is 0? of extension to 105? of flexion with crepitus. Patient does walk with an antalgic gait. Sensations intact light touch. Right knee shows healing incision without evidence of any erythema, warmth, or signs of infection. IMAGING STUDIES: X-rays of the left knee reveals varus alignment with complete lateral joint space loss and osteophyte formation with subchondral sclerosis consistent with severe osteoarthritis.. There is moderate patellofemoral joint space narrowing. IMPRESSION: 1. Severe left knee osteoarthritis with varus deformity 2. Status post right total knee arthroplasty on January 19, 2018 3. Hypertension PLAN: Dr. Deleon did discuss and review with the patient all treatment options including surgical versus nonsurgical. Patient wishes to proceed with above-stated procedure. Potential risks, benefits, and complications of this procedure were discussed in detail including but not limited to , infection, nerve and blood vessel damage, persistent pain, numbness, tingling, paresthesias, blood clot, pulmonary embolism, and requirement for further surgery. The patient expressed full understanding has no further questions for the doctor. Patient does agree to proceed with the above-stated procedure and has signed the surgery consent form. ___ I have re-examined the patient. There are no clinical changes since date of exam. ___ See progress notes for changes. ___ Dictated on admission Date: Time: Signature:
--- NOTE | 2018-03-04 16:05 | CASEMGMT ---
SISI EVANS attempted call patient regarding discharge need after upcoming surgery. No answer and voice message left with return contact information. Patient was previously here last month for right total knee replacement. Patient lives with in 1 story home with 5 steps to enter home. Patient has shower chair, toilet riser, grab bars, hand held shower, and walker home. On last admission patient went to [facility] after discharge for outpatient therapy. SISI EVANS will follow up with patient after surgery and will assist with discharge needs.
[2018-03-10] VITALS (11 sets, daily range): BP systolic 109–138; BP diastolic 49–70; PULSE 65–84; RESP 16–20; TEMP 36.1–37.2; O2SAT 92–100; BMI 45.3
[2018-03-10] MEDS: Acetaminophen 500 MG Tablet 1000 MG PO ×3 (06:02→22:16)
[2018-03-10] MEDS: oxyCODONE HCl Cr 10 MG Tablet PO (06:02)
[2018-03-10] MEDS: Lactated Ringers 1,000 ML 999 ML IV ×2 (06:35→09:00)
[2018-03-10] MEDS: Clindamycin 600 MG/50 ML BAG 100 MG IV ×3 (07:14→18:26)
--- NOTE | 2018-03-10 07:18 | OP.PCM_ITS ---
Report of Operation Date of Procedure: 03/10/18 Pre-Operative Diagnosis: Left knee primary osteoarthritis Post-Operative Diagnosis: Left knee primary osteoarthritis Surgery/Procedure Performed:: Left total knee arthroplasty Description of Surgical Findings:: Stable knee with good patella tracking beer brewer: Hari Borrego Type of Anesthesia:: Spinal Anesthesiologist: Bong Krause Special Medications: 600 mg clindamycin, 1 g TXA at incision, 1 g TXA closure, 10 mg Decadron, joint cocktail (5 mg Duramorph, 30 mL of 0.5% Ropivicaine, 1000 units of epinephrine, 30 mg of Toradol) Specimen's removed: Bony cuts Estimated Blood Loss (mL): 25 Fluids Replaced: 1 L crystalloid Description of Procedure: Implants used: 1. Clermont size 4 triathlon posterior stabilized distal femoral component 2. [place]ont size 4 universal tibial baseplate 3. Rachel X3 9 mm PS polyethylene 4. Rachel X3 32 mm asymmetric patella Brief history operative indications: 77-year-old f with history of left knee osteoarthritis with radiographic findings with loss of joint space, osteophyte formation and subchondral sclerosis. Failed conservative measures as mentioned in the H&P. Discussion of total knee arthroplasty as well as risk and benefits were discussed the patient including but not limited to blood loss, DVTs, PEs, neurovascular damage , general risk of anesthesia including loss of life, and stiffness or instability were discussed with patient. Patient demonstrated understanding and was able to sign informed consent. Procedure: On the date of procedure patient's left lower extremity was marked in the preoperative area. The patient was then taken back to the operating room where the patient was placed on the table in the supine position. All bony prominences were identified a well-padded. Anesthesia assumed control of the C- spine and airway and remained controlled throughout the remainder of the procedure. A tourniquet was placed on the left upper thigh and the leg was prepped in a sterile fashion. The surgeon then scrubbed at this time .Upon reentering the room left lower extremity was draped in a standard orthopedic fashion. A timeout was then called and everyone agreed upon the side, the site, the procedure to be performed, patient's identity and antibiotics given. Esmarch bandage was used to exsanguinate the extremity and the tourniquet was placed up to 250 mmHg with the knee in flexion. A midline skin incision was made and sharp dissection was taken down through skin subcutaneous tissue and fat. The standard medial parapatellar incision was made and the patella was subluxed laterally. The standard deep MCL release was done and the fat pad was resected. Next our attention was directed to the femur. Navigation pins were placed, navigation was registered. The distal femoral cutting block was pinned into place and 10 mm of distal femur resection was completed. The distal femoral cut was verified with navigation. The knee was then placed in deep flexion in the standard Intoloop sizing guide was used to place the femoral component in 3? external rotation based on the posterior condyles. A size 4 4-in-1 cutting block was selected and pinned into place. The anterior cut was then made and checked for notching. The subsequent anterior chamfer cuts, posterior condylar cuts and posterior chamfer cuts were made while ensuring the MCL and LCL were protected. Our attention was then turned to the tibia where the navigation pins were placed , navigation was registered. TuneUp tibial cutting guide was used to make the appropriate tibial cut 90 degrees from the mechanical axis. Navigation was then used to verify the cut. A size 4 tibial base plate was selected. the knee was flexed to 90 degrees and the soft tissues and posterior osteophytes were removed from the joint. 40 cc of the periarticular injection was injected into the posterior medial corner of the joint. The appropriate trials were then placed on the femur and tibia. A trial polyethylene was trialed to ensure proper balancing and stability of the knee. Patella tracking, was then verified and corrected appropriately as needed. The appropriate tibial internal rotation was then marked with a bovie. Our attention was then directed to the patella. The patella was everted and a flat resection was made. The lug holes were drilled and the patella trial was placed. Patellar tracking was checked and deemed appropriate. Femoral box cut was made. Once we were happy lug holes were drilled for the femur and trial components were removed. the tibia was subluxed and pinned into place and the keel was punched and the canal was reamed. Final components were verified and opened, and cement was mixed in a vacuum. Rachel Simplex cement was used. The wound was copiously irrigated with normal saline. When the cement was ready the components were cemented into place starting with the tibia, femur and finally the patella. The trial poly component was placed and the knee was placed in full extension. All excess cement was removed in the process. Once the cement had cured the tracking, alignment and balance were verified and a size 9 mm polyethylene component was placed. Once the final components were placed the wound was copiously irrigated with normal saline solution and the periarticular injection was given. The wound was closed in a layer caraballo fashion using #1 vicryl interrupted sutures for the arthrotomy, 2-0 interrupted Vicryl suture for the subcuticular layer and gaudencio for final skin closure. A sterile compressive dressing was then placed. The patient was then awakened from anesthesia, transferred [facility] and transferred to the PACU for recovery. Post op plan DVT ppx: ASA 325mg, thigh high compression stockings Follow up: in office in 2 weeks for wound check PT: to start POD #0 at hospital, outpatient PT should be arranged. Grafts/Implants Used: Clermont triathlon total knee - Complications None - Admit VTE Documentation VTE Present on Admission: No VTE Mechan Device Prophylaxis: SCD's VTE Pharm Prophylaxis ordered?: Yes
--- NOTE | 2018-03-10 09:40 | RAD_ITS ---
STUDY: X-RAY - LEFT KNEE REASON FOR EXAM: Female, 77 years old. post op l total knee replacement TECHNIQUE: 2 view(s) of the knee. COMPARISON: None. FINDINGS: Left knee arthroplasty in good alignment. Air is seen in the soft tissues of the anterior aspect of the knee from recent surgery. Surgical gaudencio are also noted at the anterior aspect of the knee. RAD/Knee 1 or 2 Views IMPRESSION: Left knee arthroplasty in good alignment. Electronically Signed: Eve Bolivar MD at 11:09 EDT Tel , Service support ,
[2018-03-10] MEDS: Scopolamine 1mg/72hr Patch 1 PATCH TD (10:06)
--- NOTE | 2018-03-10 11:42 | PCM.PN.HOSP ---
Subjective: 77-year-old with past medical history of hypertension, hyperlipidemia, previously had surgery for her right knee on January 2018, comes in status post left knee replacement. He was seen in the immediate postop.. She denies any complaints. She has a cooling rag around her knee. Denies any dizziness or chest pain or palpitations or leg swelling or fever or chills. Operative note was noted. Vitals/I&O's: Vital Signs Temp Pulse Resp BP Pulse Ox 98.0 F 70 18 109/55 L 98 03/10/18 10:45 03/10/18 10:45 03/10/18 11:16 03/10/18 10:45 03/10/18 11:16 Oxygen Delivery Method Room Air Weight: 110.7 kg Body Mass Index (BMI) 45.3 Intake and Output for Last 24 Hours 03/08/18 03/09/18 03/10/18 23:59 23:59 23:59 Intake Total 1400 / 1400 Balance 1400 / 1400 General: Alert, Oriented x3, Cooperative, - - Obese HEENT: Atraumatic, PERRLA, EOMI, Normocephalic Oral: Moist Mucosa Neck: Supple Lungs: Clear to auscultation, Normal air movement Cardiovascular: Regular rate, Regular Rhythm, Normal S1, Normal S2, No murmurs Abdomen: Bowel Sounds Present, Soft, Non Tender, Non-Distended, No Hepato-splenomegaly Extremities: No edema, - - Cooling wrap to the left knee Skin: No rashes Musculoskeletal: No Tenderness to Palpation of Joints or Extremities Lymphatic: No Cervical, Supraclavicular, or Inguinal Adenopathy Neurological: Cranial nerves II-XII grossly intact Psych/Mental Status: Normal Affect, Appropriate Current Medications Acetaminophen (Tylenol) 1,000 mg PO Q8 [facility] Amlodipine Besylate (Norvasc) 5 mg PO DAILY [facility] Aspirin (Aspirin) 325 mg PO BIDCM [facility] Atorvastatin Calcium (Lipitor) 20 mg PO DAILY [facility] Cholecalciferol (Vitamin D) 1,000 unit PO DAILYCM [facility] Famotidine (Pepcid) 20 mg PO DAILY [facility] Hydrochlorothiazide (Hydrochlorothiazide) 12.5 mg PO DAILY [facility] Clindamycin Phosphate (Cleocin) 600 mg in 50 mls @ 100 mls/hr IV Q6H [facility] Stop: 03/11/18 01:29 Lactated Ringer's () 1,000 mls @ 125 mls/hr IV .Q8H [facility] Ketorolac Tromethamine (Toradol) 15 mg IV Q6H PRN PRN PRN Reason: MILD-MOD PAIN (1-03/18) Metoprolol Succinate (Toprol Xl (Beta Moncho)) 25 mg PO DAILY [facility] Morphine Sulfate () 2 - 4 mg IV Q2H PRN PRN PRN Reason: SEVERE PAIN (6-1010) Morphine Sulfate () 2 - 4 mg IV Q2H PRN PRN PRN Reason: SEVERE PAIN (6-1010) Multivitamins (Multivitamin) 1 tablet PO DAILY@0800 [facility] Nutritional Formula (Lactose Free) (Ensure Clear) 120 ml PO TIDCM [facility] Ondansetron HCl (Zofran) 4 mg IV Q8H PRN PRN PRN Reason: NAUSEA Oxycodone HCl (Oxyir) 5 - 10 mg PO Q4H PRN PRN PRN Reason: MOD-SEVERE PAIN (-08/18) Promethazine HCl (Phenergan) 12.5 mg IM Q6H PRN PRN; Protocol PRN Reason: NAUSEA/VOMITING Senna/Docusate Sodium (Senokot-S, Rosemary-Colace) 2 tablet PO BID [facility] Sodium Chloride () 5 - 30 ml IV UD PRN PRN Reason: SALINE FLUSH Trazodone HCl (Desyrel) 50 mg PO QHS PRN PRN Reason: SLEEP Valsartan (Diovan) 320 mg PO DAILY [facility] Medical Necessity - Tobacco Use Smoking Status: Never smoker Assessment/Plan 77-year-old with past medical history of hypertension, hyperlipidemia, recent right knee osteoarthropathy, who is now in the immediate postop period for left knee arthroplasty. 1. Postop day #0 status post left TKA, pain is controlled, Toradol, morphine, oxycodone, consulted for medical management, will follow up on orthopedics recommendations, PT and OT have been consulted 2. Hypertension, controlled, on amlodipine, metoprolol, hydrochlorothiazide, valsartan, will continue to monitor vitals closely 3. Hyperlipidemia, on statins 4. DVT Prophylaxis with aspirin twice daily per orthopedics Code Visit Inpatient E&M: 43075 Subs Hosp L2
[2018-03-10] MEDS: oxyCODONE 5 MG Tablet PO ×3 (12:29→22:15)
[2018-03-10] MEDS: HYDROCHLOROTHIAZIDE 12.5 MG CAPSULE PO (13:50)
[2018-03-10] MEDS: Lactated Ringers 1,000 ML 125 ML IV (13:51)
[2018-03-10] MEDS: Atorvastatin Calcium 20 MG Tablet PO (13:51)
[2018-03-10] MEDS: Famotidine 20 MG Tablet PO (13:51)
[2018-03-10] MEDS: Aspirin 325 MG Tablet PO (17:22)
[2018-03-10] MEDS: Ketorolac 15 MG/ML Vial IV (17:23)
[2018-03-10] MEDS: Senna/Docusate Sodium 1 Tablet 2 TABLET PO (22:16)
[2018-03-11] MEDS: Clindamycin 600 MG/50 ML BAG 100 MG IV (00:52)
[2018-03-11 01:54] VITALS: BP 107/56; PULSE 61; RESP 16; TEMP 36.9; O2SAT 98
[2018-03-11] MEDS: Acetaminophen 500 MG Tablet 1000 MG PO ×3 (06:44→21:27)
[2018-03-11 07:02] LABS: Mean Corp Hgb Conc 32.4 g/gl (32-36); Mean Corpuscular Hgb 30.7 pg (27.0-32.0); Mean Platelet Vol. 10.1 fl (6.2-12.0); Platelet Count 208 K/mm3 (150-450); RBC Distribution Width CV 12.1 % (11.6-14.6); RBC Distribution Width SD 40.5 fl (35.1-43.9); Red Blood Count 3.58 M/mm3 (4.2-5.4); White Blood Count 6.2 K/mm3 (4.4-11.0)
[2018-03-11 07:04] LABS: Scan Indicated on CBC? Y/N NO
[2018-03-11 07:12] LABS: Anion Gap 9 (5-15); BUN 27 mg/dL (7-18); Calcium,Total 8.4 mg/dL (8.5-10.1); Chloride 106 mmol/L (98-107); Creatinine, Serum 1.04 mg/dL (0.55-1.02); EST Glomerular Filtration Rate 54 mL/min (>60); Est Glom Filt Rate - Afr Amer 66 mL/min (>60); Estimated Creatinine Clearance 33.64 ml/min; Glucose 98 mg/dL (74-106); Potassium 3.8 mmol/L (3.5-5.1); Sodium Level 139 mmol/L (136-145)
[2018-03-11] MEDS: Ondansetron 4 MG/2 ML Vial IV (07:26)
[2018-03-11] MEDS: Ketorolac 15 MG/ML Vial IV (07:27)
[2018-03-11 07:31] VITALS: BP 110/65; PULSE 68; RESP 16; TEMP 36.9; O2SAT 99
[2018-03-11] MEDS: Senna/Docusate Sodium 1 Tablet 2 TABLET PO ×2 (08:47→21:27)
[2018-03-11] MEDS: Multivitamins,Therapeutic Tablet 1 TABLET PO (08:48)
[2018-03-11] MEDS: amLODIPine 5 MG Tablet PO (08:48)
[2018-03-11] MEDS: Aspirin 325 MG Tablet PO ×2 (08:48→16:11)
[2018-03-11] MEDS: Atorvastatin Calcium 20 MG Tablet PO (08:49)
[2018-03-11] MEDS: HYDROCHLOROTHIAZIDE 12.5 MG CAPSULE PO (08:49)
[2018-03-11] MEDS: Famotidine 20 MG Tablet PO (08:49)
[2018-03-11 08:50] VITALS: PULSE 72
[2018-03-11] MEDS: Metoprolol(XL)Succ 25 MG Tablet PO (08:50)
[2018-03-11] MEDS: 0.9% Normal Saline 1,000 ML 100 ML IV (08:53)
[2018-03-11] MEDS: oxyCODONE 5 MG Tablet PO ×2 (11:21→21:27)
[2018-03-11 11:22] VITALS: BP 102/41; PULSE 60; RESP 16; TEMP 36.6; O2SAT 97
--- NOTE | 2018-03-11 13:27 | PCM.PN.ORT ---
Subjective: The patient evaluated in physical therapy department. Patient denies any chest pain, shortness of breath, dizziness, lightheadedness, nausea or vomiting, or calf pain. Patient did report nausea vomiting this morning but this has improved. Patient does report left knee pain but medications are helpful. No adverse overnight events. Objective: Vital signs stable and afebrile. Patient is able to plantarflex and dorsiflex actively. Sensation is intact to light touch to saphenous, sural, superficial and deep peroneal, and tibial distribution. Main dressing is with minimal discharge around middle one third. New dressing was placed by nursing over the distal incision due to drainage. This dressing is clean and dry at this time. Negative Homans bilaterally, negative signs and symptoms of DVT. - Physical Exam General: Alert, Oriented x3, Cooperative, No apparent distress Vital Signs Temp Pulse Resp BP Pulse Ox 98 F 60 16 102/41 L 97 03/11/18 11:22 03/11/18 11:22 03/11/18 11:22 03/11/18 11:22 03/11/18 11:22 Oxygen Delivery Method Room Air Weight: 110.7 kg Body Mass Index (BMI) 45.3 Intake and Output for Last 24 Hours 03/09/18 03/10/18 03/11/18 23:59 23:59 23:59 Intake Total 1400 / 1400 1693 / 1693 Output Total 450 / 450 Balance 1400 / 1400 1243 / 1243 Laboratory Tests Past 24 Hrs 03/11/18 03/11/18 06:45 06:45 WBC 6.2 RBC 3.58 L Hgb 11.0 L Hct 34.0 L MCV 95.0 MCH 30.7 MCHC 32.4 RDW 12.1 RDW Differential 40.5 Plt Count 208 MPV 10.1 Sodium 139 Potassium 3.8 Chloride 106 Carbon Dioxide 24.0 Anion Gap 9 BUN 27 H Creatinine 1.04 H Estim Creat Clear Calc 33.64 Est GFR (MDRD) Af Amer 66 Est GFR (MDRD) Non-Af 54 L BUN/Creatinine Ratio 26.0 H Glucose 98 Calcium 8.4 L Medical Necessity - Tobacco Use Smoking Status: Never smoker Assessment/Plan 1. S/P left total knee arthroplasty POD #1 2. Continue Pain Medications: Tylenol and OxyIR 3. DVT Prophylaxis: Aspirin 325 mg twice daily 4. PT/OT: Weightbearing as tolerated 5. H & H: 11.0/34.0, asymptomatic 6. Encouraged Incentive Spirometry 7. Disposition: Plan will be for possible discharge home tomorrow if pain is well controlled and patient tolerates physical therapy. Patient recurrently receiving fluids, was having nausea vomiting this morning. Overall she is doing better.
[2018-03-11 14:58] VITALS: BP 102/50; PULSE 64; RESP 16; TEMP 36.9; O2SAT 97
--- NOTE | 2018-03-11 15:10 | PCM.PN.HOSP ---
Subjective: Patient was seen and examined. Denies any new complaints. Denies any fever or chills. Has slight nausea this morning. Therapy is going well. Pain is controlled. Objective: Physical exam: General: Alert, Oriented x3, Cooperative, - - Obese HEENT: Atraumatic, PERRLA, EOMI, Normocephalic Oral: Moist Mucosa Neck: Supple Lungs: Clear to auscultation, Normal air movement Cardiovascular: Regular rate, Regular Rhythm, Normal S1, Normal S2, No murmurs Abdomen: Bowel Sounds Present, Soft, Non Tender, Non-Distended, No Hepato-splenomegaly Extremities: No edema, - - Cooling wrap to the left knee Skin: No rashes Musculoskeletal: No Tenderness to Palpation of Joints or Extremities Lymphatic: No Cervical, Supraclavicular, or Inguinal Adenopathy Neurological: Cranial nerves II-XII grossly intact Psych/Mental Status: Normal Affect, Appropriate Vitals/I&O's: Vital Signs Temp Pulse Resp BP Pulse Ox 98.5 F 64 16 102/50 L 97 03/11/18 14:58 03/11/18 14:58 03/11/18 14:58 03/11/18 14:58 03/11/18 14:58 Oxygen Delivery Method Room Air Weight: 110.7 kg Body Mass Index (BMI) 45.3 Intake and Output for Last 24 Hours 03/09/18 03/10/18 03/11/18 23:59 23:59 23:59 Intake Total 1400 / 1400 1693 / 1693 Output Total 450 / 450 Balance 1400 / 1400 1243 / 1243 Laboratory Results 03/11/18 06:45: WBC 6.2, RBC 3.58 L, Hgb 11.0 L, Hct 34.0 L, MCV 95.0, MCH 30.7, MCHC 32.4, RDW 12.1, RDW Differential 40.5, Plt Count 208, MPV 10.1 03/11/18 06:45: Sodium 139, Potassium 3.8, Chloride 106, Carbon Dioxide 24.0, Anion Gap 9, BUN 27 H, Creatinine 1.04 H, Estim Creat Clear Calc 33.64, Est GFR (MDRD) Af Amer 66, Est GFR (MDRD) Non-Af 54 L, BUN/Creatinine Ratio 26.0 H, Glucose 98, Calcium 8.4 L Current Medications Acetaminophen (Tylenol) 1,000 mg PO Q8 [facility] Last Admin: 03/11/18 14:38 Dose: 1,000 mg Amlodipine Besylate (Norvasc) 5 mg PO DAILY [facility] Last Admin: 03/11/18 08:48 Dose: [facility] Admin: 03/11/18 08:48 Dose: 325 mg Atorvastatin Calcium (Lipitor) 20 mg PO DAILY [facility] Last Admin: 03/11/18 08:49 Dose: 20 mg Cholecalciferol ([facility]itamin D) [facility] Last Admin: 03/11/18 08:49 Dose: 1,000 unit Famotidine (Pepcid) 20 mg PO DAILY [facility] Last Admin: 03/11/18 08:49 Dose: 20 mg Hydrochlorothiazide (Hydrochlorothiazide) 12.5 mg PO DAILY [facility] Last Admin: 03/11/18 08:49 Dose: 12.5 mg Sodium Chloride () 1,000 mls @ 100 mls/hr IV .Q10H [facility] Stop: 03/11/18 18:19 Last Admin: 03/11/18 08:53 Dose: 100 mls/hr Ketorolac Tromethamine (Toradol) 15 mg IV Q6H PRN PRN PRN Reason: MILD-MOD PAIN (1-5/10) Last Admin: 03/11/18 07:27 Dose: 15 mg Metoprolol Succinate (Toprol Xl (Beta Moncho)) 25 mg PO DAILY [facility] Last Admin: 03/11/18 08:50 Dose: 25 mg Morphine Sulfate () 2 - 4 mg IV Q2H PRN PRN PRN Reason: SEVERE PAIN (6-10/10) Morphine Sulfate () 2 - 4 mg IV Q2H PRN PRN PRN Reason: SEVERE PAIN (6-10/10) Multivitamins (Multivitamin) 1 tablet PO DAILY@0800 [facility] Last Admin: 03/11/18 08:48 Dose: 1 tablet Nutritional Formula (Lactose Free) (Ensure Clear) 120 ml PO TIDCM [facility] Last Admin: 03/11/18 11:20 Dose: 120 ml Ondansetron HCl (Zofran) 4 mg IV Q8H PRN PRN PRN Reason: NAUSEA Last Admin: 03/11/18 07:26 Dose: 4 mg Oxycodone HCl (Oxyir) 5 - 10 mg PO Q4H PRN PRN PRN Reason: MOD-SEVERE PAIN (4-10/10) Last Admin: 03/11/18 11:21 Dose: 10 mg Promethazine HCl (Phenergan) 12.5 mg IM Q6H PRN PRN; Protocol PRN Reason: NAUSEA/VOMITING Senna/Docusate Sodium (Senokot-S, Rosemary-Colace) 2 tablet PO BID [facility] Last Admin: 03/11/18 08:47 Dose: 2 tablet Sodium Chloride () 5 - 30 ml IV UD PRN PRN Reason: SALINE FLUSH Trazodone HCl (Desyrel) 50 mg PO QHS PRN PRN Reason: SLEEP Valsartan (Diovan) 320 mg PO DAILY [facility] Last Admin: 03/11/18 08:48 Dose: 320 mg Medical Necessity - Tobacco Use Smoking Status: Never smoker Assessment/Plan 77-year-old with past medical history of hypertension, hyperlipidemia, recent right knee osteoarthropathy, who is now in the immediate postop period for left knee arthroplasty. 1. Postop day #1 status post left TKA, pain is controlled, on Toradol, morphine, oxycodone, will follow up on orthopedics recommendations. 2. Hypertension, controlled, on amlodipine, metoprolol, hydrochlorothiazide, valsartan, will continue to monitor vitals closely 3. Elevated creatinine likely secondary to dehydration, will start on IV fluids, hold on Toradol, repeat BMP in am 4. Hyperlipidemia, on statins 5. DVT Prophylaxis with aspirin twice daily per orthopedics Code Visit Inpatient E&M: 34291 Subs Hosp L2
--- NOTE | 2018-03-11 15:14 | PN_ITS ---
Subjective: Patient was seen and examined. Denies any new complaints. Denies any fever or chills. Has slight nausea this morning. Therapy is going well. Pain is controlled. Objective: Physical exam: General: Alert, Oriented x3, Cooperative, - - Obese HEENT: Atraumatic, PERRLA, EOMI, Normocephalic Oral: Moist Mucosa Neck: Supple Lungs: Clear to auscultation, Normal air movement Cardiovascular: Regular rate, Regular Rhythm, Normal S1, Normal S2, No murmurs Abdomen: Bowel Sounds Present, Soft, Non Tender, Non-Distended, No Hepato- splenomegaly Extremities: No edema, - - Cooling wrap to the left knee Skin: No rashes Musculoskeletal: No Tenderness to Palpation of Joints or Extremities Lymphatic: No Cervical, Supraclavicular, or Inguinal Adenopathy Neurological: Cranial nerves II-XII grossly intact Psych/Mental Status: Normal Affect, Appropriate Vitals/I&O's: Vital Signs Temp Pulse Resp BP Pulse Ox 98.5 F 64 16 102/50 L 97 03/11/18 14:58 03/11/18 14:58 03/11/18 14:58 03/11/18 14:58 03/11/18 14:58 Oxygen Delivery Method Room Air Weight: 110.7 kg Body Mass Index (BMI) 45.3 Intake and Output for Last 24 Hours 03/09/18 03/10/18 03/11/18 23:59 23:59 23:59 Intake Total 1400 / 1400 1693 / 1693 Output Total 450 / 450 Balance 1400 / 1400 1243 / 1243 Laboratory Results 03/11/18 06:45: WBC 6.2, RBC 3.58 L, Hgb 11.0 L, Hct 34.0 L, MCV 95.0, MCH 30.7 , MCHC 32.4, RDW 12.1, RDW Differential 40.5, Plt Count 208, MPV 10.1 03/11/18 06:45: Sodium 139, Potassium 3.8, Chloride 106, Carbon Dioxide 24.0, Anion Gap 9, BUN 27 H, Creatinine 1.04 H, Estim Creat Clear Calc 33.64, Est GFR (MDRD) Af Amer 66, Est GFR (MDRD) Non-Af 54 L, BUN/Creatinine Ratio 26.0 H, Glucose 98, Calcium 8.4 L Current Medications Acetaminophen (Tylenol) 1,000 mg PO Q8 [facility] Last Admin: 03/11/18 14:38 Dose: 1,000 mg Amlodipine Besylate (Norvasc) 5 mg PO DAILY [facility] Last Admin: 03/11/18 08:48 Dose: 5 mg [facility] Last Admin: 03/11/18 08:48 Dose: 325 mg Atorvastatin Calcium (Lipitor) 20 mg PO DAILY [facility] Last Admin: 03/11/18 08:49 Dose: 20 mg Cholecalciferol (Vitamin D) [facility] Last Admin: 03/11/18 08:49 Dose: 1,000 unit Famotidine (Pepcid) 20 mg PO DAILY [facility] Last Admin: 03/11/18 08:49 Dose: 20 mg Hydrochlorothiazide (Hydrochlorothiazide) 12.5 mg PO DAILY [facility] Last Admin: 03/11/18 08:49 Dose: 12.5 mg Sodium Chloride () 1,000 mls @ 100 mls/hr IV .Q10H [facility] Stop: 03/11/18 18:19 Last Admin: 03/11/18 08:53 Dose: 100 mls/hr Ketorolac Tromethamine (Toradol) 15 mg IV Q6H PRN PRN PRN Reason: MILD-MOD PAIN (1-5/10) Last Admin: 03/11/18 07:27 Dose: 15 mg Metoprolol Succinate (Toprol Xl (Beta Moncho)) 25 mg PO DAILY [facility] Last Admin: 03/11/18 08:50 Dose: 25 mg Morphine Sulfate () 2 - 4 mg IV Q2H PRN PRN PRN Reason: SEVERE PAIN (6-10/10) Morphine Sulfate () 2 - 4 mg IV Q2H PRN PRN PRN Reason: SEVERE PAIN (6-10/10) Multivitamins (Multivitamin) 1 tablet PO DAILY@0800 [facility] Last Admin: 03/11/18 08:48 Dose: 1 tablet Nutritional Formula (Lactose Free) (Ensure Clear) 120 ml PO TIDCM [facility] Last Admin: 03/11/18 11:20 Dose: 120 ml Ondansetron HCl (Zofran) 4 mg IV Q8H PRN PRN PRN Reason: NAUSEA Last Admin: 03/11/18 07:26 Dose: 4 mg Oxycodone HCl (Oxyir) 5 - 10 mg PO Q4H PRN PRN PRN Reason: MOD-SEVERE PAIN (4-10/10) Last Admin: 03/11/18 11:21 Dose: 10 mg Promethazine HCl (Phenergan) 12.5 mg IM Q6H PRN PRN; Protocol PRN Reason: NAUSEA/VOMITING Senna/Docusate Sodium (Senokot-S, Rosemary-Colace) 2 tablet PO BID [facility] Last Admin: 03/11/18 08:47 Dose: 2 tablet Sodium Chloride () 5 - 30 ml IV UD PRN PRN Reason: SALINE FLUSH Trazodone HCl (Desyrel) 50 mg PO QHS PRN PRN Reason: SLEEP Valsartan (Diovan) 320 mg PO DAILY [facility] Last Admin: 03/11/18 08:48 Dose: 320 mg Medical Necessity - Tobacco Use Smoking Status: Never smoker Assessment/Plan 77-year-old with past medical history of hypertension, hyperlipidemia, recent right knee osteoarthropathy, who is now in the immediate postop period for left knee arthroplasty. 1. Postop day #1 status post left TKA, pain is controlled, on Toradol, morphine , oxycodone, will follow up on orthopedics recommendations. 2. Hypertension, controlled, on amlodipine, metoprolol, hydrochlorothiazide, valsartan, will continue to monitor vitals closely 3. Elevated creatinine likely secondary to dehydration, will start on IV fluids , hold on Toradol, repeat BMP in am 4. Hyperlipidemia, on statins 5. DVT Prophylaxis with aspirin twice daily per orthopedics Code Visit Inpatient E&M: 01369 Subs Hosp L2
[2018-03-11 20:00] VITALS: BP 100/36; PULSE 66; RESP 16; TEMP 36.9; O2SAT 99
[2018-03-12 03:36] VITALS: BP 110/52; PULSE 71; RESP 14; TEMP 36.8; O2SAT 98
[2018-03-12] MEDS: oxyCODONE 5 MG Tablet PO ×2 (03:50→08:14)
[2018-03-12 06:06] LABS: Hematocrit 31.1 % (37-47); Hemoglobin 10.2 g/dl (12.0-15.0); Mean Corp Hgb Conc 32.8 g/gl (32-36); Mean Corpuscular Hgb 30.6 pg (27.0-32.0); Mean Corpuscular Volume 93.4 fL (81-99); Platelet Count 201 K/mm3 (150-450); RBC Distribution Width CV 12.4 % (11.6-14.6); RBC Distribution Width SD 42.3 fl (35.1-43.9); Red Blood Count 3.33 M/mm3 (4.2-5.4); White Blood Count 6.8 K/mm3 (4.4-11.0)
[2018-03-12] MEDS: Acetaminophen 500 MG Tablet 1000 MG PO (06:06)
[2018-03-12 06:07] LABS: Scan Indicated on CBC? Y/N NO
--- NOTE | 2018-03-12 06:42 | PCM.PN.ORT ---
Subjective: The patient was sitting in bedside chair upon examination. Patient denies any chest pain, shortness of breath, dizziness, lightheadedness, nausea or vomiting, or calf pain. Pain is controlled on medications. No adverse overnight events. Patient is doing well today. Her pain is been controlled on medications and she is asking to go home today. Patient has outpatient physical therapy set up. Objective: Vital signs stable and afebrile. Patient is able to plantarflex and dorsiflex actively. Sensation is intact to light touch to saphenous, sural, superficial and deep peroneal, and tibial distribution. Dressing is minimal drainage middle one third of main dressing which is stable. Distal dressing is clean and dry Negative Homans bilaterally, negative signs and symptoms of DVT. - Physical Exam General: Alert, Oriented x3, Cooperative, No apparent distress Vital Signs Temp Pulse Resp BP Pulse Ox 98.3 F 71 14 110/52 L 98 03/12/18 03:36 03/12/18 03:36 03/12/18 03:36 03/12/18 03:36 03/12/18 03:36 Oxygen Delivery Method Room Air Weight: 110.7 kg Body Mass Index (BMI) 45.3 Intake and Output for Last 24 Hours 03/10/18 03/11/18 03/12/18 23:59 23:59 23:59 Intake Total 1400 / 1400 2869 / 2869 200 / 200 Output Total 450 / 450 300 / 300 Balance 1400 / 1400 2419 / 2419 -100 / -100 Laboratory Tests Past 24 Hrs 03/11/18 03/11/18 03/12/18 06:45 06:45 05:40 WBC 6.2 6.8 RBC 3.58 L 3.33 L Hgb 11.0 L 10.2 L Hct 34.0 L 31.1 L MCV 95.0 93.4 MCH 30.7 30.6 MCHC 32.4 32.8 RDW 12.1 12.4 RDW Differential 40.5 42.3 Plt Count 208 201 MPV 10.1 10.0 Sodium 139 Potassium 3.8 Chloride 106 Carbon Dioxide 24.0 Anion Gap 9 BUN 27 H Creatinine 1.04 H Estim Creat Clear Calc 33.64 Est GFR (MDRD) Af Amer 66 Est GFR (MDRD) Non-Af 54 L BUN/Creatinine Ratio 26.0 H Glucose 98 Calcium 8.4 L Medical Necessity - Tobacco Use Smoking Status: Never smoker Assessment/Plan 1. S/P left total knee arthroplasty POD #2 2. Continue Pain Medications: Tylenol and OxyIR 3. DVT Prophylaxis: Aspirin 325 mg twice daily 4. PT/OT: Weightbearing as tolerated 5. H & H: 10.2/31.1, asymptomatic 6. Encouraged Incentive Spirometry 7. Disposition: Orthopedically stable, plan is for discharge home today. Prescriptions will be E scribed to [facility]. Patient will follow-up per postop instructions.
--- NOTE | 2018-03-12 06:49 | PCM.DC.TKR ---
Discharge Diet: No Restrictions Discharge Activity: May Not Drive May shower in (days): 1 - Turned dressing away from water Ice area for (Minutes): 20 - every hour while awake. Weight Bearing Status: Weight bearing as tolerated Elevate: Operative Extremity Additional Activity Instructions:: Wear elastic stockings for 2 weeks after your surgery. Call your doctor if your incision/area has: Continuous Slow Oozing, Sudden Increased Bleeding, Increased Pain/ Swelling, Increased Redness, Foul Smelling Discharge Call your doctor if you observe: Fever of 101 or Higher, Coldness, Increased Pain, Numbness or Tingling, Change in Color, Calf discomfort, Uncontrolled pain Remove Dressing in (days):: 3 - Okay to remove dressing on March 15, 2018 Additional Instructions: Follow [facility] postop instructions Allergies/Adverse Reactions: Allergies camphor [From Vicks Vaporub] Allergy (Verified 02/24/18 10:35) Rash diclofenac [From Arthrotec] Allergy (Verified 02/24/18 10:35) Rash egg Allergy (Verified 02/24/18 10:35) Food Allergy eucalyptus [From Vicks Vaporub] Allergy (Verified 02/24/18 10:35) Rash latex Allergy (Verified 02/24/18 10:36) Rash menthol [From Vicks Vaporub] Allergy (Verified 02/24/18 10:35) Rash misoprostol [From Arthrotec] Allergy (Verified 02/24/18 10:35) Rash Penicillins [PCN] Allergy (Verified 02/24/18 10:35) Rash petrolatum,white [From Vicks Vaporub] Allergy (Verified 02/24/18 10:35) Rash propoxyphene [From Darvocet-N] Allergy (Verified 02/24/18 10:35) Other [place]IGHTMARES strawberry Allergy (Verified 02/24/18 10:35) Food Allergy trolamine salicylate [From Aspercreme] Allergy (Verified 02/24/18 10:35) Rash turpentine oil [From Vicks Vaporub] Allergy (Verified 02/24/18 10:35) Rash hydrocodone [From Vicodin] Adverse Reaction (Verified 02/24/18 10:35) Other [place] BAND AID Allergy (Uncoded 02/24/18 10:35) Rash TAPE Allergy (Uncoded 02/24/18 10:35) Rash Medications to take at Discharge Amlodipine [Norvasc] 5 mg PO DAILY 02/23/17 Cholecalciferol (Vitamin D3) [Vitamin D3] 1,000 unit PO DAILY 02/23/17 Metoprolol Succinate 25 mg PO DAILY 02/23/17 Multivitamin [Multiple Vitamins] 1 each PO DAILY 02/23/17 Valsartan/Hydrochlorothiazide [Valsartan-Hctz 320-12.5 mg Tab] 1 each PO DAILY 02/23/17 Atorvastatin Calcium [Lipitor] 20 mg PO DAILY 01/01/18 traZODone [Desyrel] 50 mg PO QHS PRN 01/01/18 Acetaminophen [Tylenol] 1,000 mg PO Q8 #100 tab 03/12/18 Aspirin 325 mg PO BIDCM #30 tab 03/12/18 Famotidine [Pepcid] 20 mg PO DAILY #30 tab 03/12/18 Oxycodone [Oxyir] 5 - 10 mg PO Q4H PRN PRN 7 Days #80 tablet 03/12/18 Senna/Docusate Sodium [Senokot-S] 2 tab PO BID #20 tab 03/12/18 The following prescriptions were given: Oxycodone [Oxyir] 5 - 10 mg PO Q4H PRN PRN 7 Days #80 tablet PRN Reason: Mod-Severe Pain (-08/18) Acetaminophen [Tylenol] 1,000 mg PO Q8 #100 tab Famotidine [Pepcid] 20 mg PO DAILY #30 tab Aspirin 325 mg PO BIDCM #30 tab Senna/Docusate Sodium [Senokot-S] 2 tab PO BID #20 tab Primary Care Physician: Michael Morgan MD [Primary Care Provider] - Please Follow Up With: Physical therapy When: 03/15/18 @ 10:30 Please Follow Up With: Jerry Mcintyre PA-C When: 03/24/18 @ 11:00 am
--- NOTE | 2018-03-12 07:13 | PCM.PN.HOSP ---
Subjective: Patient was seen and examined. No new complains. Feels well. Denies any chest pain, dizziness, SOB. She is being discharged today by the orthopedics team Objective: Physical exam: General: Alert, Oriented x3, Cooperative, - - Obese HEENT: Atraumatic, PERRLA, EOMI, Normocephalic Oral: Moist Mucosa Neck: Supple Lungs: Clear to auscultation, Normal air movement Cardiovascular: Regular rate, Regular Rhythm, Normal S1, Normal S2, No murmurs Abdomen: Bowel Sounds Present, Soft, Non Tender, Non-Distended, No Hepato-splenomegaly Extremities: No edema, - - Cooling wrap to the left knee Skin: No rashes Musculoskeletal: No Tenderness to Palpation of Joints or Extremities Lymphatic: No Cervical, Supraclavicular, or Inguinal Adenopathy Neurological: Cranial nerves II-XII grossly intact Psych/Mental Status: Normal Affect, Appropriate Vitals/I&O's: Vital Signs Temp Pulse Resp BP Pulse Ox 98.3 F 71 14 110/52 L 98 03/12/18 03:36 03/12/18 03:36 03/12/18 03:36 03/12/18 03:36 03/12/18 03:36 Oxygen Delivery Method Room Air Weight: 110.7 kg Body Mass Index (BMI) 45.3 Intake and Output for Last 24 Hours 03/10/18 03/11/18 03/12/18 23:59 23:59 23:59 Intake Total 1400 / 1400 2869 / 2869 200 / 200 Output Total 450 / 450 300 / 300 Balance 1400 / 1400 2419 / 2419 -100 / -100 Laboratory Results 03/12/18 05:40: WBC 6.8, RBC 3.33 L, Hgb 10.2 L, Hct 31.1 L, MCV 93.4, MCH 30.6, MCHC 32.8, RDW 12.4, RDW Differential 42.3, Plt Count 201, MPV 10.0 Current Medications Acetaminophen (Tylenol) 1,000 mg PO Q8 [facility] Last Admin: 03/12/18 06:06 Dose: 1,000 mg Amlodipine Besylate (Norvasc) 5 mg PO DAILY [facility] Last Admin: 03/11/18 08:48 Dose: 5 mg Aspirin (Aspirin) 325 mg PO BIDCM [facility] Last Admin: 03/11/18 16:11 Dose: 325 mg Atorvastatin Calcium (Lipitor) 20 mg PO DAILY [facility] Last Admin: 03/11/18 08:49 Dose: 20 mg Cholecalciferol (Vitamin D) [facility] Last Admin: 03/11/18 08:49 Dose: 1,000 unit Famotidine (Pepcid) 20 mg PO DAILY [facility] Last Admin: 03/11/18 08:49 Dose: 20 mg Hydrochlorothiazide (Hydrochlorothiazide) 12.5 mg PO DAILY [facility] Last Admin: 03/11/18 08:49 Dose: 12.5 mg Metoprolol Succinate (Toprol Xl (Beta Moncho)) 25 mg PO DAILY [facility] Last Admin: 03/11/18 08:50 Dose: 25 mg Morphine Sulfate () 2 - 4 mg IV Q2H PRN PRN PRN Reason: SEVERE PAIN (6-10/10) Morphine Sulfate () 2 - 4 mg IV Q2H PRN PRN PRN Reason: SEVERE PAIN (6-10/10) Multivitamins (Multivitamin) 1 tablet PO DAILY@0800 [facility] Last Admin: 03/11/18 08:48 Dose: 1 tablet Nutritional Formula (Lactose Free) (Ensure Clear) 120 ml PO TIDCM [facility] Last Admin: 03/11/18 16:13 Dose: 120 ml Ondansetron HCl (Zofran) 4 mg IV Q8H PRN PRN PRN Reason: NAUSEA Last Admin: 03/11/18 07:26 Dose: 4 mg Oxycodone HCl (Oxyir) 5 - 10 mg PO Q4H PRN PRN PRN Reason: MOD-SEVERE PAIN (4-10/10) Last Admin: 03/12/18 03:50 Dose: 10 mg Promethazine HCl (Phenergan) 12.5 mg IM Q6H PRN PRN; Protocol PRN Reason: NAUSEA/VOMITING Senna/Docusate Sodium (Senokot-S, Rosemary-Colace) 2 tablet PO BID [facility] Last Admin: 03/11/18 21:27 Dose: 2 tablet Sodium Chloride () 5 - 30 ml IV UD PRN PRN Reason: SALINE FLUSH Trazodone HCl (Desyrel) 50 mg PO QHS PRN PRN Reason: SLEEP Valsartan (Diovan) 320 mg PO DAILY [facility] Last Admin: 03/11/18 08:48 Dose: 320 mg Medical Necessity - Tobacco Use Smoking Status: Never smoker Assessment/Plan 77-year-old with past medical history of hypertension, hyperlipidemia, recent right knee osteoarthropathy, admitted for left knee arthroplasty. 1. Postop day #2 status post left TKA, pain is controlled, being discharged today by orthopedics team, wound and therapy management per orthopedic team 2. Hypertension, controlled, will continue on amlodipine, metoprolol, hydrochlorothiazide, valsartan 3. Elevated creatinine likely secondary to dehydration, BMP pending 4. Anemia, microcytic, microchromic, not related to surgery, stable at 10.2, will check iron stores, if low will need po iron. 5. Hyperlipidemia, on statins 5. DVT Prophylaxis with aspirin twice daily per orthopedics 6. Disposition: Ok to dc from medical standpoint
[2018-03-12] MEDS: Multivitamins,Therapeutic Tablet 1 TABLET PO (08:14)
[2018-03-12] MEDS: Aspirin 325 MG Tablet PO (08:14)
[2018-03-12 08:41] LABS: Immature Platelet Fraction 2.5 % (1.0-7.9); RET-HE 32.7 pg (30-35); Reticulocyte Count 1.42 % (0.5-1.5)
[2018-03-12 09:13] VITALS: BP 93/43; PULSE 73; RESP 16; TEMP 36.7; O2SAT 95
[2018-03-12 09:27] LABS: Anion Gap 7 (5-15); BUN 24 mg/dL (7-18); BUN/Creat Ratio 22.2 RATIO (10-20); Calcium,Total 8.4 mg/dL (8.5-10.1); Chloride 109 mmol/L (98-107); Creatinine, Serum 1.08 mg/dL (0.55-1.02); EST Glomerular Filtration Rate 52 mL/min (>60); Est Glom Filt Rate - Afr Amer 63 mL/min (>60); Ferritin 76 ng/mL (8-252); Glucose 98 mg/dL (74-106); Iron 23 ug/dL (50-170); Iron Binding Capacity,Total 356 ug/dL (250-450); PERCENT IRON SATURATION 6.5 % (15.0-55.0); Potassium 3.7 mmol/L (3.5-5.1); Sodium Level 140 mmol/L (136-145)
[2018-03-12 09:29] VITALS: PULSE 71
[2018-03-12] MEDS: Metoprolol(XL)Succ 25 MG Tablet PO (09:29)
[2018-03-12] MEDS: Famotidine 20 MG Tablet PO (09:30)
[2018-03-12] MEDS: Atorvastatin Calcium 20 MG Tablet PO (09:30)
== END 2018-03-12 13:01 | disposition home or self-care (01) | DRG 470 ==
LOC: ACINP 05:31 → MS3 08:33
PROVIDERS: Internal Medicine; Admitting Provider Specialist; Family Provider Family Medicine; PCP Family Medicine; Visit Provider Specialist
PROC: 0SRD069 Replacement of Left Knee Joint with Oxidized Zirconium on Polyethylene Synthetic Substitute, Cemented, Open Approach (ICD-10-PCS; CPT 27447; principal; 2018-03-10 06:45)
DX: M17.12 Unilateral primary osteoarthritis, left knee (principal); Z68.42 Body mass index [BMI] 45.0-49.9, adult; Z96.651 Presence of right artificial knee joint; I10 Essential (primary) hypertension; Z79.891 Long term (current) use of opiate analgesic; Z79.899 Other long term (current) drug therapy; E66.9 Obesity, unspecified; E78.5 Hyperlipidemia, unspecified; E86.0 Dehydration; R94.4 Abnormal results of kidney function studies; D50.9 Iron deficiency anemia, unspecified
CPT/HCPCS: 36415; 73560; 80048; 82728; 83540; 83550; 85027; 85045; 87077; 87081; 97110; 97162; 97166; 97530; 97535; 99251; C1776; J7030; J7120; G0463; J2405

== ENCOUNTER → 2018-06-01 09:03 | Outpatient (CLI) | payer MEDICARE, OTHER, SELFPAY ==
--- NOTE | 2018-06-01 09:30 | RAD_ITS ---
PROCEDURE: Steroid injection - LEFT SHOULDER REASON FOR EXAM: Female, 78 years old. Shoulder pain FLUOROSCOPY TIME (if supplied): (0:10) seconds STERILE BARRIER TECHNIQUE: The following sterile barrier precautions were used during the procedure: hand hygiene; use of 2% chlorhexidine aseptic; use of a cap, mask, sterile gown, sterile gloves, sterile full body drape, and a large sterile sheet. PROCEDURE/TECHNIQUE: The risks, benefits, and alternatives to the procedure were explained to patient, and the patient agreed to the procedure and signed a consent form for the procedure. A timeout was performed to confirm the patient's identity, the type of procedure, to be performed and the site of entry. Number of images obtained: 2 TECHNIQUE: Under fluoroscopic guidance using sterile technique and after infiltration of the skin and subcutaneous soft tissues with 10 mL of lidocaine 1% a 22-gauge needle is introduced in the shoulder joint. A mixture containing 2cc betamethasone and 3cc of lidocaine1% were injected in the joint. FINDINGS: There is no evidence of intra-articular loose bodies. 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 RAD/Inj/Asp Aris Jt Should/Hip/Knee IMPRESSION: Successful intra-articular steroid injection. Electronically Signed: Eve Bolivar MD at 20:27 EDT Tel , Service support ,
== END ==
PROVIDERS: Family Provider Family Medicine; PCP Family Medicine; Visit Provider Specialist
DX: M25.519 Pain in unspecified shoulder (principal)
CPT/HCPCS: 20610; 77002; J0702

== ENCOUNTER → 2019-08-18 | Outpatient (CLI) | payer MEDICARE, OTHER, SELFPAY ==
--- NOTE | 2019-08-18 10:47 | BD_ITS ---
STUDY: DUAL ENERGY X-RAY ABSORPTIOMETRY / DXA REASON FOR EXAM: Female, 79 years old. The patient is postmenopausal. Loss of height. TECHNIQUE: Bone Mineral Density (BMD) measurements of lumbar spine and left forearm were obtained. The patient has a history of bilateral hip replacements. COMPARISON: Comparison is made with prior study August 10, 2014. FINDINGS: Lumbar Spine (L1-L4): g/cm2 (1.227) / T-score (0.5) / Z-score (2.4) Findings are suggestive of normal bone density with a low fracture risk. Left Forearm: g/cm2 (0.718) / T-score (-1.8) / Z-score (0.9) The T-Scores on the most recent prior examination were: Lumbar Spine (L1-L4): There has been improvement of bone density since the previous examination. BD/Dexa Bone Density Study IMPRESSION: The patient is considered osteopenic as outlined below according to World [place] Organization (WHO) criteria with a moderate fracture risk. There has been improvement of bone density since the previous examination. Reference Information: The T-score is the number of standard deviations above or below the standard which is normal for young adults at their peak bone mineral density. The World Health Organization (WHO) interprets the T-scores as follows: Above -1 Normal bone density Between -1 and -2.5 Osteopenia Equal to / or below -2.5 Osteoporosis As a practical clinical guideline, osteopenia may be graded as follows: Mild -1 through -1.5 Moderate -1.6 through -2.0 Severe -2.1 through -2.4 The Z-score is the number of standard deviations above or below age-matched controls. A Z-score of less than -1.5 would be considered abnormal. References: 1. NIH Osteoporosis and Related Bone Diseases http://www.osteo.org 2. International Society for Clinical Densitometry http://www.iscd.org 3. National Osteoporosis Foundation http://www.nof.org Electronically Signed: Jensen Godfrey, at 15:19 EDT , Service support ,
== END | disposition home or self-care (01) ==
LOC: OPBD 10:40
PROVIDERS: Family Provider Family Medicine; PCP Family Medicine; Referring Provider Physician Assistant; Visit Provider Physician Assistant
DX: Z78.0 Asymptomatic menopausal state (principal); Z13.820 Encounter for screening for osteoporosis
CPT/HCPCS: 77080